=== PATIENT | male | born 1955 | race Caucasian/White ===

== ENCOUNTER 2020-07-20 13:33 | Inpatient (IN) | payer OTHER ==
[~2020-07-20] VITALS: Ht 172.7 cm; Wt 96.1 kg
[2020-07-20] MEDS ORDERED: SODIUM CHLORIDE FLUSH 10ML SYR IVF ONE (14:30)
--- NOTE | 2020-07-20 14:32 | NUR ---
PT PROVIDED W/ URINAL, EDUCATED ON NEED FOR SAMPLE.
[2020-07-20 14:34] LABS: BASOPHILS % (AUTO) 1 % (0-1); EOSINOPHILS % (AUTO) 0 % (1-7); LYMPHOCYTES % (AUTO) 10 % (22-44); MEAN CORPUSCULAR HGB CONC 34.9 g/dL (33.2-36.2); MEAN PLATELET VOLUME 6.9 fL (7.4-10.4); MONOCYTES % (AUTO) 7 % (2-9); NEUTROPHILS % (AUTO) 81 % (42-75); PLATELET COUNT 326 x10^3/uL (130-400); RED BLOOD COUNT 4.12 x10^6/uL (4.38-5.82); RED CELL DISTRIBUTION WIDTH 13.2 % (9.4-14.8)
[2020-07-20 14:42] LABS: ALBUMIN 3.7 g/dL (3.4-5.0); ANION GAP 12 mmol/L (5-15); CALCIUM 9.9 mg/dL (8.5-10.1); CHLORIDE 91 mmol/L (98-107)
[2020-07-20 14:46] LABS: ALANINE AMINOTRANSFERASE 49 U/L (12-78); ALKALINE PHOSPHATASE 69 U/L (45-117); BILIRUBIN,TOTAL 1.4 mg/dL (0.2-1.0); CREATININE 0.77 mg/dL (0.7-1.3); TOTAL PROTEIN 8.5 g/dL (6.4-8.2)
[2020-07-20 14:55] LABS: MICROSCOPIC AUTO
[2020-07-20] MEDS ORDERED: OMNIPAQUE 350 MG/ML, 100ML BOTTLE ONE (15:20)
--- NOTE | 2020-07-20 15:23 | NUR ---
PT IN CT.
[2020-07-20] MEDS ORDERED: CEFOTETAN PMX 1GM/50ML 50 ML IVPB ONE (15:30)
[2020-07-20] MEDS ORDERED: METRONIDAZOLE PMX 500MG/100ML 100 ML IV ONE (15:30)
[2020-07-20] MEDS ORDERED: SODIUM CHLORIDE 0.9% 1,000ML IVBOLUS ONE (15:30)
[2020-07-20] MEDS ORDERED: METRONIDAZOLE PMX 500MG/100ML 100 ML ONE (15:33)
[2020-07-20] MEDS ORDERED: VERAPAMIL (15:44)
[2020-07-20] MEDS ORDERED: VALSARTAN (15:44)
--- NOTE | 2020-07-20 15:44 | NUR ---
PT UPDATED ON POC FOR ADMIT. RESTING ON GURNEY W/ CALL LIGHT IN REACH, SIDE RAILS UPX2 AND FAMILY AT BEDSIDE. RESP EVEN AND UNLABORED, RAMAN.
--- NOTE | 2020-07-20 15:46 | NUR ---
LAB AT BEDSIDE FOR BLOOD CULTURE DRAW.
--- NOTE | 2020-07-20 16:06 | NUR ---
ABX STARTED, CULTURE BAND IN PLACE. PT DENIES FURTHER NEEDS AT THIS TIME.
--- NOTE | 2020-07-20 16:10 | NUR ---
PT 90-91% RA, PLACED ON 2L NC W/ DESIRED EFFECT.
[2020-07-20] MEDS ORDERED: ONDANSETRON 2MG/ML, 2ML IVPush PRN (16:30)
[2020-07-20] MEDS ORDERED: POLYETHYLENE GLYCOL 17 GM PACKET PO PRN (16:30)
[2020-07-20] MEDS ORDERED: TEMAZEPAM 15 MG CAPSULE PO PRN (16:30)
[2020-07-20] MEDS: METRONIDAZOLE PMX 500MG/100ML 100 ML IV SCH (16:30)
[2020-07-20] MEDS ORDERED: KETOROLAC 30 MG/1 ML IV PRN (16:30)
[2020-07-20] MEDS ORDERED: ACETAMINOPHEN 325 MG TABLET PO PRN (16:30)
[2020-07-20] MEDS ORDERED: ENOXAPARIN 40 MG/0.4 ML ONE (17:32)
--- NOTE | 2020-07-20 17:35 | NUR ---
REPORT GIVEN TO MARY WINKLER. PT READY FOR TRANSPORT AT THIS TIME. RESTING ON GURNEY W/ CALL LIGHT IN REACH, SIDE RAILS UPX2. RESP EVEN AND UNLABORED, RAMAN.
[2020-07-20] MEDS: ENOXAPARIN 40 MG/0.4 ML SQ SCH (17:53)
[2020-07-20 18:42] VITALS: BP 142/78
[2020-07-20 19:25] VITALS: BP 170/79
[2020-07-20 19:52] VITALS: BP 123/72
[2020-07-20] MEDS: POTASSIUM CHLORIDE 20 MEQ in LACTATED RINGERS 1,000 ML IV SCH (20:00)
[2020-07-20] MEDS ORDERED: hydrALAzine 20 MG/ML, 1ML IV PRN (20:00)
[2020-07-21] MEDS: METRONIDAZOLE PMX 500MG/100ML 100 ML IV SCH ×3 (00:19→16:55)
[2020-07-21 02:02] VITALS: BP 150/83
[2020-07-21] MEDS: CEFTRIAXONE 2 GM in DEXTROSE 5% 50 ML IVPB SCH (04:51)
[2020-07-21 04:58] LABS: BASOPHILS % (AUTO) 1 % (0-1); EOSINOPHILS % (AUTO) 2 % (1-7); LYMPHOCYTES % (AUTO) 13 % (22-44); MEAN CORPUSCULAR HEMOGLOBIN 33.5 pg (27.5-34.5); MEAN CORPUSCULAR HGB CONC 35.3 g/dL (33.2-36.2); MEAN PLATELET VOLUME 7.3 fL (7.4-10.4); MONOCYTES % (AUTO) 11 % (2-9); NEUTROPHILS % (AUTO) 72 % (42-75); PLATELET COUNT 296 x10^3/uL (130-400); RED BLOOD COUNT 3.63 x10^6/uL (4.38-5.82); RED CELL DISTRIBUTION WIDTH 13.2 % (9.4-14.8)
[2020-07-21 04:59] LABS: ALANINE AMINOTRANSFERASE 40 U/L (12-78); ANION GAP 7 mmol/L (5-15); CALCIUM 8.3 mg/dL (8.5-10.1); CHLORIDE 95 mmol/L (98-107); CREATININE 0.62 mg/dL (0.7-1.3)
[2020-07-21 05:01] LABS: ALKALINE PHOSPHATASE 62 U/L (45-117); BILIRUBIN,TOTAL 1.3 mg/dL (0.2-1.0); TOTAL PROTEIN 7.3 g/dL (6.4-8.2)
[2020-07-21 07:06] VITALS: BP 127/77
[2020-07-21] MEDS: POTASSIUM CHLORIDE 20 MEQ in LACTATED RINGERS 1,000 ML IV SCH (08:43)
[2020-07-21] MEDS: SENNA/DOCUSATE TABLET PO SCH (08:44)
[2020-07-21] MEDS: VALSARTAN 80 MG TABLET PO SCH (08:45)
[2020-07-21] MEDS ORDERED: VERAPAMIL 80MG TABLET PO SCH (09:00)
[2020-07-21] MEDS ORDERED: VALS1TAB30 PO (09:00)
[2020-07-21] MEDS ORDERED: VERA240C4 PO (09:00)
[2020-07-21] MEDS: VERAPAMIL ER 240MG TABLET.ER PO SCH (09:30)
[2020-07-21] MEDS: ENOXAPARIN 40 MG/0.4 ML SQ SCH (16:55)
[2020-07-21 18:54] VITALS: BP 134/68
[2020-07-22 00:20] VITALS: BP 128/63
[2020-07-22] MEDS: METRONIDAZOLE PMX 500MG/100ML 100 ML IV SCH ×3 (00:38→15:48)
[2020-07-22] MEDS: CEFTRIAXONE 2 GM in DEXTROSE 5% 50 ML IVPB SCH (04:05)
[2020-07-22 05:55] LABS: BASOPHILS % (AUTO) 1 % (0-1); EOSINOPHILS % (AUTO) 5 % (1-7); LYMPHOCYTES % (AUTO) 27 % (22-44); MEAN CORPUSCULAR HEMOGLOBIN 33.3 pg (27.5-34.5); MEAN CORPUSCULAR HGB CONC 34.9 g/dL (33.2-36.2); MEAN PLATELET VOLUME 7.3 fL (7.4-10.4); MONOCYTES % (AUTO) 8 % (2-9); NEUTROPHILS % (AUTO) 59 % (42-75); PLATELET COUNT 317 x10^3/uL (130-400)
[2020-07-22 06:02] LABS: ANION GAP 9 mmol/L (5-15); CALCIUM 9.4 mg/dL (8.5-10.1); CHLORIDE 94 mmol/L (98-107)
[2020-07-22 06:04] LABS: CREATININE 0.75 mg/dL (0.7-1.3)
[2020-07-22 07:06] VITALS: BP 143/75
[2020-07-22] MEDS: SENNA/DOCUSATE TABLET PO SCH (08:29)
[2020-07-22] MEDS: VALSARTAN 80 MG TABLET PO SCH (08:31)
[2020-07-22] MEDS: VERAPAMIL ER 240MG TABLET.ER PO SCH (08:38)
[2020-07-22 14:48] VITALS: BP 134/74
[2020-07-22] MEDS: ENOXAPARIN 40 MG/0.4 ML SQ SCH (15:48)
[2020-07-22 19:01] VITALS: BP 153/84
[2020-07-23] MEDS: METRONIDAZOLE PMX 500MG/100ML 100 ML IV SCH ×2 (00:12→07:52)
[2020-07-23 00:16] VITALS: BP 134/60
[2020-07-23] MEDS: CEFTRIAXONE 2 GM in DEXTROSE 5% 50 ML IVPB SCH (04:11)
[2020-07-23] MEDS: VERAPAMIL ER 240MG TABLET.ER PO SCH (07:53)
[2020-07-23] MEDS: SENNA/DOCUSATE TABLET PO SCH (07:53)
[2020-07-23] MEDS: VALSARTAN 80 MG TABLET PO SCH (07:53)
[2020-07-23 08:25] VITALS: BP 126/69
[2020-07-23] MEDS ORDERED: AMOX1TAB64 PO (10:43)
[2020-07-23] MEDS ORDERED: VALS80TA30 PO (10:43)
== END 2020-07-23 12:05 | disposition home or self-care (01) | DRG 872 ==
LOC: SUATTDRO 16:18 → ED 17:35 → 3N 18:13 → DCLOUNGE 07-23 11:58
PROVIDERS: ADMIT Internal Medicine; ATTEND Internal Medicine
DX: A41.9 Sepsis, unspecified organism (principal); E87.1 Hypo-osmolality and hyponatremia; K57.32 Diverticulitis of large intestine without perforation or abscess without bleeding; I10 Essential (primary) hypertension; T50.2X5A Adverse effect of carbonic-anhydrase inhibitors, benzothiadiazides and other diuretics, initial encounter; Y92.89 Other specified places as the place of occurrence of the external cause; R73.9 Hyperglycemia, unspecified
CPT/HCPCS: 36415; 74177; 80048; 80053; 81001; 83036; 83605; 83690; 85025; 87040; 99291; G0378; J0696; J1650; J3480; Q9967; J7030; J7120